=== PATIENT | male | born 1965 | race Caucasian/White ===

== ENCOUNTER 2017-11-10 10:06 | Emergency (ER) | payer OTHER ==
--- NOTE | 2017-11-10 11:22 | C.PDOC ---
History Of Present Illness 52 yr old male presents to the ER with complaints of fever and cough for the past 2 days. patient is accompanied by daughter. As per daughter, patient states he has been coughing up blood multiple times. Patient denies recent travel, recent trauma, chest pain, SOB, nausea, vomiting, abdominal pain, neck pain, weakness or numbness. Daughter reports patient had rib fracture due to an injury few years and was the only time patient had breathing problem but no problem since than. Time Seen by Provider: 11/10/17 10:54 Chief Complaint (Nursing): Flu-like Symptoms History Per: Patient, Family (daughter) History/Exam Limitations: no limitations Onset/Duration Of Symptoms: Days Current Symptoms Are (Timing): Still Present Sick Contacts (Context): None Past Medical History Reviewed: Historical Data, Nursing Documentation, Vital Signs Vital Signs: Last Vital Signs Temp 99.9 F H 11/10/17 13:26 Pulse 96 H 11/10/17 13:26 Resp 20 11/10/17 13:26 BP 132/76 11/10/17 13:26 Pulse Ox 99 11/10/17 17:20 - Medical History PMH: HTN (stopped bp med 1 yr ago) Family History: States: No Known Family Hx - Social History Hx Alcohol Use: No Hx Substance Use: No - Immunization History Hx Tetanus Toxoid Vaccination: No Hx Influenza Vaccination: No Hx Pneumococcal Vaccination: No Review Of Systems Except As Marked, All Systems Reviewed And Found Negative. Constitutional: Positive for: Fever (subjective) Cardiovascular: Negative for: Chest Pain Respiratory: Positive for: Cough (with blood). Negative for: Shortness of Breath Gastrointestinal: Negative for: Nausea, Vomiting, Abdominal Pain Musculoskeletal: Negative for: Neck Pain Neurological: Negative for: Weakness, Numbness Physical Exam - Physical Exam Appears: Non-toxic, No Acute Distress Skin: Warm, Dry, No Rash Head: Atraumatic, Normacephalic Eye(s): bilateral: Normal Inspection, PERRL, EOMI Oral Mucosa: Moist Neck: Normal ROM, Supple Chest: Symmetrical, No Tenderness Cardiovascular: Rhythm Regular, No Friction Rub, No Murmur Respiratory: Normal Breath Sounds, No Rales, No Rhonchi, No Stridor, No Wheezing Gastrointestinal/Abdominal: Normal Exam, Soft, No Tenderness Back: Normal Inspection, No CVA Tenderness Extremity: Normal ROM, No Tenderness, No Swelling Neurological/Psych: Oriented x3, Normal Speech, Normal Motor Gait: Steady ED Course And Treatment O2 Sat by Pulse Oximetry: 99 (RA) Pulse Ox Interpretation: Normal - Other Rad CXR X-Ray: Viewed By Me, Read By Radiologist Interpretation: HISTORY: cough, fever, blood in sputum. COMPARISON: Chest x- ray performed 05/09/15. TECHNIQUE: Chest PA and lateral. FINDINGS: LUNGS: No focal consolidation. Please note that chest x-ray has limited sensitivity for the detection of pulmonary masses. PLEURA: No significant pleural effusion identified. No definite pneumothorax . CARDIOVASCULAR: The cardiomediastinal silhouette appears within normal limits of size. OSSEOUS STRUCTURES: No acute osseous abnormality identified. VISUALIZED UPPER ABDOMEN : Unremarkable. OTHER FINDINGS: None. IMPRESSION: No focal consolidation identified. Medical Decision Making Medical Decision Making: PLAN: * CXR On re-exam, the patient reports improvement of symptoms. Lungs are CTA, heart is RRR, abdomen is soft, non-tender and the patient is tolerating PO well. Patient is ambulatory in the ED with steady. Follow up with the medical doctor within 1-2 days without fail, return if worsened,. Disposition - Disposition Referrals: [facility] at [facility] [Outside] Disposition: HOME/ ROUTINE Disposition Time: 12:57 Condition: FAIR Additional Instructions: Follow up with the medical doctor within 1-2 days withotu fail, return if worsened,. Prescriptions: guaiFENesin/Codeine [Codeine/Guaifenesin 10 MG/5 Ml-100 MG/5 Ml 5] 5 ml PO BID # 50 udc Ibuprofen [Motrin] 1 tab PO TID PRN #30 tab PRN Reason: Pain Oseltamivir [Tamiflu] 75 mg PO BID #9 cap Instructions: Flu, Adult (DC) Forms: [employer] (Wolof), Work Excuse - Clinical Impression Clinical Impression: Influenza - PA / CIRCULATION LIBRARIAN / Resident Statement MD/DO has reviewed & agrees with the documentation as recorded. - Scribe Statement The provider has reviewed the documentation as recorded by the Scribe Vanesa Downs All medical record entries made by the Scribe were at my direction and personally dictated by me. I have reviewed the chart and agree that the record accurately reflects my personal performance of the history, physical exam, medical decision making, and the department course for this patient. I have also personally directed, reviewed, and agree with the discharge instructions and disposition.
[2017-11-10] MEDS ORDERED: guaiFENesin-Codeine 100-10mg/5ml Syrup (10ml) UD PO STA (12:31)
[2017-11-10] MEDS ORDERED: guaiFENesin-Codeine 100-10mg/5ml Syrup (10ml) UD ONE (12:44)
--- NOTE | 2017-11-10 13:14 | RAD ---
HISTORY: cough, fever, blood in sputum COMPARISON: Chest x-ray performed 05/09/15 TECHNIQUE: Chest PA and lateral FINDINGS: LUNGS: No focal consolidation. Please note that chest x-ray has limited sensitivity for the detection of pulmonary masses. PLEURA: No significant pleural effusion identified. No definite pneumothorax . CARDIOVASCULAR: The cardiomediastinal silhouette appears within normal limits of size. OSSEOUS STRUCTURES: No acute osseous abnormality identified. VISUALIZED UPPER ABDOMEN: Unremarkable. OTHER FINDINGS: None. IMPRESSION: No focal consolidation identified.
[2017-11-10 13:27] VITALS: BP 132/76; PULSE 96; RESP 20; TEMP 99.9
[2017-11-10 13:29] VITALS: O2SAT 99
== END 2017-11-10 13:33 | disposition home or self-care (01) ==
LOC: C.ER 10:06
DX: J11.1 Influenza due to unidentified influenza virus with other respiratory manifestations (principal)